=== PATIENT | male | born 1955 | race Caucasian/White ===

== ENCOUNTER → 2017-02-15 | Outpatient (CLI) | payer OTHER ==
--- NOTE | 2017-02-15 09:17 | KCIC ---
MR of the left shoulder Indication: Left shoulder pain for 6 months, progressive. Trauma many years ago. Technique: Standard multiplanar sequences are obtained. Findings: Mild/moderate motion degradation. Acromioclavicular joint: Mildly degenerative. Rotator cuff: No evidence of large or full-thickness rotator cuff tear. Only trace subdeltoid bursal fluid. Glenohumeral cartilage: No advanced osteoarthritis. Fluid: No significant joint effusion. Labrum: Limited exam due to the motion. No obvious tear. Biceps tendon: Mild tendinosis. Bones: No lesion or acute fracture. Soft tissue: No acute findings. Impression: 1. Biceps tendinosis. 2. No apparent rotator cuff tear. Electronically signed by: Davi Smith MD (02/15/2017 9:14 AM) [id number]
== END | disposition home or self-care (01) ==
LOC: KCIC MRI 08:16
PROVIDERS: ATTEND Internal Medicine
DX: M25.512 Pain in left shoulder (principal)
CPT/HCPCS: 73221